=== PATIENT | male | born 1980 | race Caucasian/White ===

== ENCOUNTER → 2021-06-30 | Outpatient (CLI) | payer OTHER ==
[~2021-06-30] MED LIST: ASPIRIN CHEWABL81 MG PO; IMDUR ER TAB 3030 MG PO; NITROSTAT0.4 MG SL; NORVASC 5 MG TAB5 MG PO
== END ==
LOC: HEART 5 08:53
DX: R06.02 Shortness of breath (principal)
CPT/HCPCS: 94010

== ENCOUNTER 2021-10-05 13:24 | Emergency (ER) | payer SELFPAY ==
[2021-10-05] MEDS ORDERED: IBUPROFEN600 MG PO (15:28)
[2021-10-05] MEDS ORDERED: BACTROBAN OINT22 GM EXT (15:28)
== END 2021-10-05 16:21 | disposition home or self-care (01) ==
LOC: ER1 13:24
DX: T24.602A Corrosion of second degree of unspecified site of left lower limb, except ankle and foot, initial encounter (principal); I10 Essential (primary) hypertension; Z90.89 Acquired absence of other organs
CPT/HCPCS: 90471; 90715; 99283